=== PATIENT | female | born 1960 | race Caucasian/White ===

== ENCOUNTER 2018-04-28 09:17 | Emergency (ER) | payer OTHER, BC ==
[2018-04-28 09:25] VITALS: RESP 18
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
--- NOTE | 2018-04-28 10:24 | XR ---
EXAMINATION TYPE: XR ankle complete LT DATE OF EXAM: 04/28/2018 COMPARISON: NONE HISTORY: Pain FINDINGS: Three views of the ankle demonstrate the ankle mortise to be intact and symmetric. Soft tissue swel ling. There appears to be a linear lucency along the medial malleolus compatible with an acute fractu re. This extends to the articular surface. IMPRESSION: 1. Acute fracture or mild displacement medial malleolus extending to the articular surface.
--- NOTE | 2018-04-28 10:25 | XR ---
EXAMINATION TYPE: XR knee limited LT DATE OF EXAM: 04/28/2018 COMPARISON: NONE HISTORY: Pain TECHNIQUE: Three views are submitted. FINDINGS: Joint spaces are preserved. Osseous structures are intact. No acute fracture seen. IMPRESSION: 1. No acute fracture or dislocation.
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
--- NOTE | 2018-04-28 10:27 | XR ---
EXAMINATION TYPE: XR cervical spine comp DATE OF EXAM: 04/28/2018 COMPARISON: NONE HISTORY: Pain TECHNIQUE: Four views are submitted. FINDINGS: The odontoid is intact. There are no compression deformities. The prevertebral soft tissue structur es are within normal limits. There is severe multilevel degenerative disc disease and posterior spon dylosis with retrolisthesis of C4 on 5 and C5 and C6. Multilevel facet arthropathy noted. There is fo raminal encroachment level C4-C7. IMPRESSION: 1. Multilevel degenerative disc disease and cervical spondylosis with multilevel foraminal encroachme nt.
--- NOTE | 2018-04-28 10:34 | XR ---
EXAMINATION TYPE: XR chest 2V DATE OF EXAM: 04/28/2018 COMPARISON: NONE TECHNIQUE: PA and lateral views submitted. HISTORY: Pain FINDINGS: The lungs are clear and there is no pneumothorax, pleural effusion, or focal pneumonia. Biapical pl eural thickening. Hyperinflation suggests COPD. Hypertrophic change of the spine noted. No overt fail ure. IMPRESSION: 1. No acute process.
[2018-04-28 11:19] VITALS: BP 150/69; PULSE 76; TEMP 97.6
== END 2018-04-28 11:27 | disposition home or self-care (01) ==
LOC: EC 09:17
DX: S82.55XA Nondisplaced fracture of medial malleolus of left tibia, initial encounter for closed fracture (principal); M47.812 Spondylosis without myelopathy or radiculopathy, cervical region; R07.81 Pleurodynia; S80.212A Abrasion, left knee, initial encounter; S80.812A Abrasion, left lower leg, initial encounter; J45.909 Unspecified asthma, uncomplicated; G25.81 Restless legs syndrome; Z79.899 Other long term (current) drug therapy; Z88.0 Allergy status to penicillin; Z88.2 Allergy status to sulfonamides; V43.52XA Car driver injured in collision with other type car in traffic accident, initial encounter
CPT/HCPCS: 29515; 71046; 72050; 99284

== ENCOUNTER → 2018-05-01 | Outpatient (CLI) | payer BC ==
--- NOTE | 2018-05-03 17:50 | CT ---
EXAMINATION TYPE: CT ankle LT wo con DATE OF EXAM: 05/01/2018 COMPARISON: 04/28/2018 HISTORY: Medial malleolus fx. CT DLP: 177.3 mGycm Automated exposure control for dose reduction was used. TECHNIQUE: Contiguous axial slices were obtained through the left ankle without intravenous contrast. Coronal and sagittal reformats were obtained for review. FINDINGS: There is redemonstration of a medial malleolus fracture with a proximally 1 mm anterior displacement of the distal fracture fragment with extent into the anterior medial joint space and extensive overly ing soft tissue swelling. No lateral malleolus fracture or posterior malleolus fracture is seen. Subc hondral cystic change is noted of the distal tibia and of the talar dome most pronounced of the media l talar dome. Talar dome maintains a normal morphology without collapse. No fracture of the talus or calcaneus is seen. No additional fracture seen of the left ankle. Evaluation of the soft tissue struc tures is limited on CT and further limited by the extensive surrounding edema. Grossly the Achilles t endon and extensor tendons appear intact in their visualized portions with somewhat thickening of the lateral compartment tendons. Soft tissue swelling is generalized but most pronounced over the medial malleolus. Evaluation of the anterior talofibular ligament and posterior talofibular ligament are li mited on CT. Soft tissue swelling is seen in the region of the deltoid ligament. Small probable acces shlomo ossicle is noted at the posterior aspect of the navicular versus much less likely radiopaque for eign body on series 3 image 52. IMPRESSION: 1. REDEMONSTRATION OF A VERY MINIMALLY DISPLACED INTRA-ARTICULAR MEDIAL MALLEOLUS FRACTURE WITH NO AD DITIONAL FRACTURE IDENTIFIED. EXTENSIVE OVERLYING SOFT TISSUE SWELLING LIMITS EVALUATION OF THE LIGAM ENTS AND TENDONS. 2. NO ADDITIONAL FRACTURE OF THE LEFT ANKLE IS SEEN HOWEVER THERE IS A 3 MM FRAGMENT NEAR THE NAVICUL AR THAT LIKELY RELATES TO AN ACCESSORY OSSICLE OR VERY LESS LIKELY RADIOPAQUE FOREIGN BODY. 3. DISTAL TENDINOUS THICKENING OF THE LATERAL FLEXOR COMPARTMENT. TENDONS AND LIGAMENTS COULD BE FURT HER EVALUATED FOR TEAR AFTER SWALLOWING IMPROVES WITH MRI. ADDITIONALLY FOCAL SOFT TISSUE SWELLING IS SEEN IN THE REGION OF THE DELTOID LIGAMENT, LIMITING EVALUATION. 4. SUBCHONDRAL CYSTIC CHANGE OF THE DISTAL TIBIA AND TALAR DOME FROM MODERATE HINDFOOT ARTHROPATHY.
== END | disposition home or self-care (01) ==
LOC: RADCTMAIN 18:29
PROVIDERS: ATTEND Orthopaedic Surgery
DX: S82.52XA Displaced fracture of medial malleolus of left tibia, initial encounter for closed fracture (principal); M67.874 Other specified disorders of tendon, left ankle and foot; M19.072 Primary osteoarthritis, left ankle and foot; M85.672 Other cyst of bone, left ankle and foot

== ENCOUNTER → 2018-05-12 | Outpatient (CLI) | payer OTHER, BC ==
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
== END | disposition home or self-care (01) ==
LOC: RADXRYALE 11:06
PROVIDERS: ATTEND Physician Assistant Medical
DX: S22.41XA Multiple fractures of ribs, right side, initial encounter for closed fracture (principal)

== ENCOUNTER → 2019-04-05 | Outpatient (CLI) | payer BC ==
--- NOTE | 2019-04-05 11:13 | BD ---
EXAMINATION TYPE: Axial Bone Density DATE OF EXAM: 04/05/2019 COMPARISON: NONE CLINICAL HISTORY: Postmenopausal female. Osteoporosis screening. Height: 5 FT 4 1/2 Weight: 136 FRAX RISK QUESTIONS: History of Fracture in Adulthood: YES Secondary Osteoporosis: RISK FACTORS HISTORY OF: Family History of Osteoporosis: YES Active: YES Postmenopausal woman: AGE 53 Take estrogen and/or progesterone medications: JENITLLI How lon YEARS Lost more than 2 inches in height since high school: YES MEDICATIONS: Additional Medications: HRT, MIRIPEX, Additional History: EXAM MEASUREMENTS: Bone mineral densitometry was performed using the [employer] System. Bone mineral density as measured about the Lumbar spine is: ----- L1-L4(G/cm2): 1.265 T Score Values are as follows: ----- L2: 0.2 ----- L3: 1.0 ----- L4: 1.5 ----- L1-L4: 0.7 BASELINE Bone mineral density about the R hip (g/cm2): 0.835 Bone mineral density about the L hip (g/cm2): 0.811 T Score values are as follows: -----R Neck: -1.5 -----L Neck: -1.6 -----R Total: -1.2 -----L Total: -1.3 BASELINE IMPRESSION: Osteopenia (T Score between -2.5 and -1). There is slightly increased risk of fracture and the patient may be considered for treatment. Re-Screen 2-5 years. NOTE: T-SCORE=SD OF THE YOUNG ADULT MEAN.
--- NOTE | 2019-04-07 08:59 | MM ---
Reason for exam: screening (asymptomatic). Last mammogram was performed 2 years and 7 months ago. History: Patient is postmenopausal, history of other cancer, and had first child at age 32. Retro-pectoral implants, 2012. Taking estrogen for 1 year. Physical Findings: A clinical breast exam by your physician is recommended on an annual basis and results should be correlated with mammographic findings. MG Screening Mammo Implant/CAD Bilateral CC, MLO, and ID view(s) were taken. Prior study comparison: September 13, 2016, bilateral MG screening mammo implant/CAD. October 24, 2014, left breast MG work up mamm w CAD LT. The breast tissue is heterogeneously dense. This may lower the sensitivity of mammography. Bilateral subpectoral implants. No discrete abnormality. ASSESSMENT: Benign, BI-RAD 2 RECOMMENDATION: Routine screening mammogram of both breasts.
== END | disposition home or self-care (01) ==
LOC: RADMAMWWP 07:29
PROVIDERS: ATTEND Family Medicine
DX: Z12.31 Encounter for screening mammogram for malignant neoplasm of breast (principal); N95.1 Menopausal and female climacteric states; M85.80 Other specified disorders of bone density and structure, unspecified site
CPT/HCPCS: 77067; 77080

== ENCOUNTER → 2020-06-13 | Outpatient (CLI) | payer BC ==
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
== END | disposition home or self-care (01) ==
LOC: RADMAMWWP 07:07
PROVIDERS: ATTEND Family Medicine
DX: Z12.39 Encounter for other screening for malignant neoplasm of breast (principal)
CPT/HCPCS: 77067

== ENCOUNTER → 2023-04-21 | Outpatient (CLI) | payer BC ==
--- NOTE | 2023-04-22 08:16 | MM ---
Reason for Exam: Screening (asymptomatic). Last mammogram was performed 1 year(s) and 3 month(s) ago. Patient History: Menarche at age 15. First Full-Term at age 32. Late child-bearing (after 30). Postmenopausal. Other cancer. Currently using Estrogen, for 6 years, 7 months. 2013, Implant(s). Risk Values: Lisa 5 year model risk: 1.9%. NCI Lifetime model risk: 8.9%. Prior Study Comparison: 04/05/2019 Bilateral Screening Mammogram, [facility]. 06/13/2020 Bilateral Screening Mammogram, [facility]. 01/04/2022 Bilateral Screening Mammogram, [facility]. Tissue Density: The breast tissue is heterogeneously dense. This may lower the sensitivity of mammography. Findings: Analyzed By CAD. Bilateral breast implants. There is no suspicious group of microcalcifications or new suspicious mass in either breast. Overall Assessment: Benign, BI-RAD 2 Management: Screening Mammogram of both breasts in [address] [facility] will attempt to contact patient to return for supplemental views and ultrasound if indicated. Patient should continue monthly self-breast exams. A clinical breast exam by your physician is recommended on an annual basis. This exam should not preclude additional follow-up of suspicious palpable abnormalities. Note on Lisa scores and lifetime risk: 1. A Lisa score greater than 3% is considered moderate risk. If this is the case, consider specialist referral to assess eligibility for a risk reducing agent. 2. If overall lifetime risk for the development of breast cancer is 20% or higher, the patient may qualify for future screening with alternating mammogram and breast MRI. Electronically signed and approved by: Nuno Amos DO
== END | disposition home or self-care (01) ==
LOC: RADMAMWWP 14:32
PROVIDERS: ATTEND Family Medicine
DX: Z12.31 Encounter for screening mammogram for malignant neoplasm of breast (principal); Z78.0 Asymptomatic menopausal state
CPT/HCPCS: 77067

== ENCOUNTER → 2024-11-09 | Outpatient (CLI) | payer BC ==
--- NOTE | 2024-11-09 10:44 | MM ---
Reason for Exam: Screening (asymptomatic). Last mammogram was performed 1 year(s) and 7 month(s) ago. Patient History: Menarche at age 15. First Full-Term at age 32. Late child-bearing (after 30). Postmenopausal. Other cancer. Currently using Estrogen, for 6 years, 7 months. 2013, Implant(s). Risk Values: Lisa 5 year model risk: 2.0%. NCI Lifetime model risk: 8.4%. Prior Study Comparison: 06/13/2020 Bilateral Screening Mammogram, [facility]. 01/04/2022 Bilateral Screening Mammogram, [facility]. 04/21/2023 Bilateral MG screening mammo implant/CAD, [facility]. Tissue Density: The breasts are heterogeneously dense, which may obscure small masses. Findings: Analyzed By CAD. Subpectoral bilateral breast implants are redemonstrated. There is no suspicious new group of microcalcifications or new suspicious mass in either breast. Overall Assessment: Benign, BI-RAD 2 Management: Screening Mammogram of both breasts in 1 year. . Patient should continue monthly self-breast exams. A clinical breast exam by your physician is recommended on an annual basis. This exam should not preclude additional follow-up of suspicious palpable abnormalities. Note on Lisa scores and lifetime risk: 1. A Lisa score greater than 3% is considered moderate risk. If this is the case, consider specialist referral to assess eligibility for a risk reducing agent. 2. If overall lifetime risk for the development of breast cancer is 20% or higher, the patient may qualify for future screening with alternating mammogram and breast MRI. [facility], , 11/09/2024 10:41 AM. Electronically signed and approved by: Flako Lockwood M.D.
== END | disposition home or self-care (01) ==
LOC: RADMAMWWP 09:53
PROVIDERS: ATTEND Obstetrics & Gynecology
DX: Z12.31 Encounter for screening mammogram for malignant neoplasm of breast (principal); Z78.0 Asymptomatic menopausal state; R92.333 Mammographic heterogeneous density, bilateral breasts; Z98.82 Breast implant status
CPT/HCPCS: 77067

== ENCOUNTER → 2025-01-22 | Outpatient (CLI) | payer BC ==
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
== END | disposition home or self-care (01) ==
LOC: RADMRIMAIN 13:31
PROVIDERS: ATTEND Obstetrics & Gynecology
DX: N28.1 Cyst of kidney, acquired (principal); K76.89 Other specified diseases of liver; D25.1 Intramural leiomyoma of uterus
CPT/HCPCS: 72197; A9585